=== PATIENT | male | born 1980 | race Caucasian/White ===

== ENCOUNTER 2017-09-23 13:02 | Emergency (ER) | payer OTHER ==
--- NOTE | 2017-09-23 14:52 | EDM.PDOC ---
ED HPI GENERAL MEDICAL PROBLEM - General Chief Complaint: Respiratory Problem Stated Complaint: DIFFICULTY BREATHING Time Seen by Provider: 09/23/17 13:40 Source of Information: Reports: Patient History Limitations: Reports: No Limitations - History of Present Illness INITIAL COMMENTS - FREE TEXT/NARRATIVE: 36-year-old male presents for evaluation and treatment of multiple different complaints. He is difficult to follow. He has lots of flight of ideas, paranoid thoughts and tangential thoughts. Likely schizophrenic. He denies that he is on any current medications and denies any chronic medical conditions. He denies any drug or alcohol usage. He states that he does smoke cigarettes occasionally. Patient checked in with difficulty breathing. He feels that there are parasites in his lungs. He states he has trouble getting a clear breath and describes crawling in his lungs. He does not really have chest pain from this. He is unsure if he has any fevers. He denies any chills. He states that he has been vomiting. No diarrhea. He also complains of abdominal pain. Reports he had abdominal pain for 4 days but it is now mostly subsided. He did try drinking fluids, milk of magnesia and using a fleets enema without much relief. Patient also reports that he has something in his throat and feels like his swelling. He describes some postnasal drainage. He also reports that he has the tics to the left eye. He does acknowledge that his symptoms could be from stress. He states that he is hearing noises in the form of his stomach growling grumbling and feels that his stomach is in knots. Patient reports a good appetite. He denies any suicidal or homicidal ideation. He denies any recent travel. He reports he was recently relocated to [place] from [place]. 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 Past Medical History - Past Health History Medical/Surgical History: Denies Medical/Surgical History Social & Family History - Tobacco Use Smoking Status *Q: Former Smoker Used Tobacco, but Quit: Yes Month Tobacco Last Used: about 1 year and relapsed - Caffeine Use Caffeine Use: Reports: Coffee, Soda - Recreational Drug Use Recreational Drug Use: No ED ROS GENERAL - Review of Systems Review Of Systems: See Below Constitutional: Reports: Fatigue. Denies: Chills HEENT: Reports: Throat Pain, Throat Swelling, Other (reports left eye tic) Respiratory: Reports: Shortness of Breath Cardiovascular: Denies: Chest Pain GI/Abdominal: Reports: Abdominal Pain (last 4 days now improved; knots in stomach). Denies: Diarrhea Psychiatric: Reports: Anxiety. Denies: Homicidal Ideation, Suicidal Ideation ED EXAM, GENERAL - Physical Exam Exam: See Below Exam Limited By: No Limitations General Appearance: Alert, WD/WN, No Apparent Distress Eye Exam: Bilateral Eye: Normal Inspection Ears: Normal External Exam, Normal Canal, Hearing Grossly Normal, Normal TMs Nose: Normal Inspection Throat/Mouth: Normal Inspection, Normal Lips, Normal Voice, No Airway Compromise Respiratory/Chest: No Respiratory Distress, Lungs Clear, Normal Breath Sounds Cardiovascular: Normal Peripheral Pulses, Regular Rate, Rhythm, No Murmur GI/Abdominal: Normal Bowel Sounds, Soft, Non-Tender Neurological: Alert, Normal Gait Psychiatric: Other (paranoid thoughts, tangental thoughts, fight of ideas, no suicidal or homicidal thoughts or plan) Skin Exam: Warm, Dry, Normal Color Course - Vital Signs Last Recorded V/S: Last Vital Signs Temp 37.1 C 09/23/17 13:20 Pulse 74 09/23/17 13:20 Resp 20 09/23/17 13:20 BP 131/92 H 09/23/17 13:20 Pulse Ox 98 09/23/17 13:20 - Orders/Labs/Meds Orders: Active Orders 24 hr Category Date Time Status Chest 2V [CR] Stat Exams 09/23/17 13:57 Taken KUB [Abdomen 1V Flat] [CR] Stat Exams 09/23/17 13:57 Taken RAPID PLASMA REAGIN,RPR [CHEM] Stat Lab 09/23/17 14:15 Received Labs: Laboratory Tests 09/23/17 09/23/17 09/23/17 Range/Units 14:15 14:15 14:15 WBC 6.14 (4.23-9.07) K/mm3 RBC 5.16 (4.63-6.08) M/mm3 Hgb 17 (13.7-17.5) gm/L Hct 44.5 (40.1-51.0) % MCV 86.2 (79.0-92.2) fl MCH 32.9 H (25.7-32.2) pg MCHC 38.2 H (32.2-35.5) g/dl RDW Std Deviation 38.7 (35.1-43.9) fL Plt Count 232 (163-337) K/mm3 MPV 9.6 (9.4-12.3) fl Neutrophils % (Manual) 59 (40-60) % Band Neutrophils % 0 (0-10) % Lymphocytes % (Manual) 35 (20-40) % Atypical Lymphs % 0 % Monocytes % (Manual) 1 L (2-10) % Eosinophils % (Manual) 5 (0.8-7.0) % Basophils % (Manual) 0 L (0.2-1.2) Platelet Estimate Adequate Plt Morphology Comment Normal RBC Morph Comment Normal Sodium 140 (136-145) mEq/L Potassium 4.4 (3.5-5.1) mEq/L Chloride 105 (98-107) mEq/L Carbon Dioxide 26 (21-32) mEq/L Anion Gap 13.4 (5-15) BUN 13 (7-18) mg/dL Creatinine 0.9 (0.7-1.3) mg/dL Est Cr Clr Drug Dosing 117.60 mL/min Estimated GFR (MDRD) > 60 (>60) mL/min BUN/Creatinine Ratio 14.4 (14-18) Glucose 93 (74-106) mg/dL Calcium 9.5 (8.5-10.1) mg/dL Magnesium 2.0 (1.8-2.4) mg/dl Total Bilirubin 3.8 H (0.2-1.0) mg/dL Direct Bilirubin 0.20 (0.0-0.2) mg/dl AST 26 (15-37) U/L ALT 45 (16-63) U/L Alkaline Phosphatase 69 (46-116) U/L C-Reactive Protein < 0.2 (<1.0) mg/dL Total Protein 7.5 (6.4-8.2) g/dl Albumin 4.2 (3.4-5.0) g/dl Globulin 3.3 gm/dL Albumin/Globulin Ratio 1.3 (1-2) Lipase 110 (73-393) U/L Urine Color (Yellow) Urine Appearance (Clear) Urine pH (5.0-8.0) Ur Specific [place] (1.005-1.030) Urine Protein (Negative) Urine Glucose (UA) (Negative) Urine Ketones (Negative) Urine Occult Blood (Negative) Urine Nitrite (Negative) Urine Bilirubin (Negative) Urine Urobilinogen (0.2-1.0) Ur Leukocyte Esterase (Negative) Urine RBC (0-5) /hpf Urine WBC (0-5) /hpf Ur Epithelial Cells (0-5) /hpf Urine Bacteria (FEW) /hpf Urine Mucus (FEW) /hpf Urine Opiates Screen (NEGATIVE) Ur Buprenorphine Scrn (NEGATIVE) Ur Oxycodone Screen (NEGATIVE) Urine Methadone Screen (NEGATIVE) Ur Propoxyphene Screen (NEGATIVE) Ur Barbiturates Screen (NEGATIVE) Ur Tricyclics Screen (NEGATIVE) Ur Phencyclidine Scrn (NEGATIVE) Ur Amphetamine Screen (NEGATIVE) U Methamphetamines Scrn (NEGATIVE) U Benzodiazepines Scrn (NEGATIVE) U Cocaine Metab Screen (NEGATIVE) U Marijuana (THC) Screen (NEGATIVE) Ethyl Alcohol 0.00 (0.00) gm% 09/23/17 09/23/17 Range/Units 14:45 14:45 WBC (4.23-9.07) K/mm3 RBC (4.63-6.08) M/mm3 Hgb (13.7-17.5) gm/L Hct (40.1-51.0) % MCV (79.0-92.2) fl MCH (25.7-32.2) pg MCHC (32.2-35.5) g/dl RDW Std Deviation (35.1-43.9) fL Plt Count (163-337) K/mm3 MPV (9.4-12.3) fl Neutrophils % (Manual) (40-60) % Band Neutrophils % (0-10) % Lymphocytes % (Manual) (20-40) % Atypical Lymphs % % Monocytes % (Manual) (2-10) % Eosinophils % (Manual) (0.8-7.0) % Basophils % (Manual) (0.2-1.2) Platelet Estimate Plt Morphology Comment RBC Morph Comment Sodium (136-145) mEq/L Potassium (3.5-5.1) mEq/L Chloride (98-107) mEq/L Carbon Dioxide (21-32) mEq/L Anion Gap (5-15) BUN (7-18) mg/dL Creatinine (0.7-1.3) mg/dL Est Cr Clr Drug Dosing mL/min Estimated GFR (MDRD) (>60) mL/min BUN/Creatinine Ratio (14-18) Glucose (74-106) mg/dL Calcium (8.5-10.1) mg/dL Magnesium (1.8-2.4) mg/dl Total Bilirubin (0.2-1.0) mg/dL Direct Bilirubin (0.0-0.2) mg/dl AST (15-37) U/L ALT (16-63) U/L Alkaline Phosphatase (46-116) U/L C-Reactive Protein (<1.0) mg/dL Total Protein (6.4-8.2) g/dl Albumin (3.4-5.0) g/dl Globulin gm/dL Albumin/Globulin Ratio (1-2) Lipase (73-393) U/L Urine Color Yellow (Yellow) Urine Appearance Clear (Clear) Urine pH 7.0 (5.0-8.0) Ur Specific [place] 1.020 (1.005-1.030) Urine Protein Negative (Negative) Urine Glucose (UA) Negative (Negative) Urine Ketones Negative (Negative) Urine Occult Blood Negative (Negative) Urine Nitrite Negative (Negative) Urine Bilirubin Negative (Negative) Urine Urobilinogen 0.2 (0.2-1.0) Ur Leukocyte Esterase Trace H (Negative) Urine RBC Not seen (0-5) /hpf Urine WBC 0-5 (0-5) /hpf Ur Epithelial Cells 0-5 (0-5) /hpf Urine Bacteria Not seen (FEW) /hpf Urine Mucus Not seen (FEW) /hpf Urine Opiates Screen Negative (NEGATIVE) Ur Buprenorphine Scrn Negative (NEGATIVE) Ur Oxycodone Screen Negative (NEGATIVE) Urine Methadone Screen Negative (NEGATIVE) Ur Propoxyphene Screen Negative (NEGATIVE) Ur Barbiturates Screen Negative (NEGATIVE) Ur Tricyclics Screen Negative (NEGATIVE) Ur Phencyclidine Scrn Negative (NEGATIVE) Ur Amphetamine Screen Negative (NEGATIVE) U Methamphetamines Scrn Negative (NEGATIVE) U Benzodiazepines Scrn Negative (NEGATIVE) U Cocaine Metab Screen Negative (NEGATIVE) U Marijuana (THC) Screen Negative (NEGATIVE) Ethyl Alcohol (0.00) gm% - Radiology Interpretation Free Text/Narrative:: Abdomen: Supine view of the abdomen was obtained. Comparison: No prior study. Slight increased stool within the colon is seen. Bowel gas pattern is otherwise unremarkable. No abnormal calcifications or soft tissue abnormality is seen. Bony structures are unremarkable. Impression: 1. Slight increased stool within the colon. 2. Supine abdominal x-ray is otherwise unremarkable. Chest: 2 views of the chest were obtained. Comparison: Prior chest x-ray of 01/30/11. Heart size and mediastinum are normal. Minimal scoliosis is seen within the thoracic spine which is stable. Diaphragms are flattened on the lateral view suggesting slight hyperinflation, please correlate if patient is a smoker or has asthma. Lungs otherwise are clear. Impression: 1. Diaphragms are slightly flattened. Please see above. 2. Nothing acute is seen. - Re-Assessments/Exams Free Text/Narrative Re-Assessment/Exam: 09/23/17 16:17 I had a long discussion with the patient's mother, Dangelo, she states that the patient asked to come to the ER today. She states he is always make comments about having parasites within him but over the last few weeks it seems like it has gotten worse. She confirms that he is a schizophrenic. He is not currently on medications. She states that she does have a psychiatrist that is willing to see him whenever he is ready to be seen. She reports that earlier this year she moved him here from [place]. He was homeless for approximately last 15 years in [place]. She now pays for a home for him in [place] and buys him groceries weekly. She states he drinks alcohol on occasion. He does smoke cigarettes on occasion. Reports about a year and a half ago while in [place] he did have a suicide attempt. Reports that he overdosed on his psych medications. She states that he was previously on amitriptyline and Zyprexa. She states he was involved with a program for homeless people and getting medications through that program. She reports that he was hospitalized in [place]. Since coming to [place] he has not seen anyone for psychiatric care. She states she monitors him closely and he has not recently said anything to suggest suicidal or homicidal behavior. She states he often has paranoid thoughts such as bugs and parasites inside and being from another planet. She states she is normally able to reason with him and points out flaws in his thinking process and this causes him to realize that he is likely not from another planet. I informed her of [email or web address]. I informed her of the intake process at 8 AM on Sunday to if he is willing to go. She states she has committed him before and is aware of how this process goes. I encouraged her to bring him to the ER if his symptoms change or worsen or if he has any threatening behavior. Mom does confirm that he's had a chronically elevated total bilirubin. She states they have never identified the etiology for this. I informed the patient of his lab and xray results. Feels comfortable going home. Discharge instructions as documented . Departure - Departure Time of Disposition: 16:25 Disposition: Home, Self-Care 01 Condition: Good Clinical Impression: Stress, Constipation - Discharge Information Instructions: Constipation, Adult, [id number] Referrals: PCP,None [Primary Care Provider] - Forms: ED Department Discharge Additional Instructions: Make sure you are drinking plenty of fluids. You may try [id number] medication such as MiraLAX as needed for help with constipation. Follow up with a family medicine provider as needed. Please return to the ER if your symptoms change or worsen. - My Orders Last 24 Hours: My Active Orders 09/23/17 13:57 Chest 2V [CR] Stat KUB [Abdomen 1V Flat] [CR] Stat 09/23/17 14:15 RAPID PLASMA REAGIN,RPR [CHEM] Stat - Assessment/Plan Last 24 Hours: My Active Orders 09/23/17 13:57 Chest 2V [CR] Stat KUB [Abdomen 1V Flat] [CR] Stat 09/23/17 14:15 RAPID PLASMA REAGIN,RPR [CHEM] Stat
--- NOTE | 2017-09-24 07:24 | CR ---
Chest: Two views of the chest were obtained. Comparison: Prior chest x-ray of 01/30/11. Heart size and mediastinum are normal. Minimal scoliosis is seen within the thoracic spine which is stable. Diaphragms are flattened on the lateral view suggesting slight hyperinflation, please correlate if patient is a smoker or has asthma. Lungs otherwise are clear. Impression: 1. Diaphragms are slightly flattened. Please see above. 2. Nothing acute is seen. Diagnostic code #3
--- NOTE | 2017-09-24 07:25 | CR ---
Abdomen: Supine view of the abdomen was obtained. Comparison: No prior study. Slight increased stool within the colon is seen. Bowel gas pattern is otherwise unremarkable. No abnormal calcifications or soft tissue abnormality is seen. Bony structures are unremarkable. Impression: 1. Slight increased stool within the colon. 2. Supine abdominal x-ray is otherwise unremarkable. Diagnostic code #2
== END 2017-09-23 16:30 | disposition home or self-care (01) ==
LOC: JD.ED 13:02
DX: K59.00 Constipation, unspecified (principal); F43.9 Reaction to severe stress, unspecified; Z87.891 Personal history of nicotine dependence
CPT/HCPCS: 36415; 71020; 74000; 80053; 80306; 81001; 82248; 83690; 83735; 85025; 86140; 86592; 99285; G0480; 99284

== ENCOUNTER 2021-12-29 05:13 | Inpatient (IN) | payer SELFPAY ==
[2021-12-29] MEDS ORDERED: Ondansetron 4 MG/2 ML SDV IVPUSH ONE ×2 (05:33→10:54)
[2021-12-29] MEDS ORDERED: Sodium Chloride 0.9% 1,000 ML IV STA (05:33)
[2021-12-29] MEDS ORDERED: Sodium Chloride 0.9% 10 ML Syringe FLUSH PRN (05:33)
[2021-12-29] MEDS ORDERED: HYDROmorphone 0.5 MG/0.5 ML Syringe IVPUSH ONE (05:35)
[2021-12-29] MEDS ORDERED: LORazepam 2 MG/ML SDV IVPUSH ONE (10:54)
[2021-12-29] MEDS ORDERED: FLU Vacc QS2021-22 36MOS UP/PF 60 MCG/0.5 ML Syringe IM ONE (16:30)
[2021-12-29] MEDS: cefTRIAXone 2 GM in Sodium Chloride 0.9% 100 ML IV SCH (16:44)
[2021-12-29] MEDS: Sodium Chloride 0.9% 1,000 ML IV SCH (16:44)
[2021-12-29] MEDS: metroNIDAZOLE/Normal Saline 500 MG in Premix Bag 1 BAG IV SCH (17:51)
[2021-12-29] MEDS: oxyCODONE 5 MG Tab PO PRN (20:06)
[2021-12-29] MEDS: Lactulose Soln 10 GM/15 ML 30 ML UD Cup PO SCH (20:07)
[2021-12-29] MEDS: Lithium Carbonate 300 MG Cap PO SCH (20:15)
[2021-12-29] MEDS: Haloperidol 5 MG Tab PO SCH (20:17)
[2021-12-29] MEDS: Ondansetron 4 MG Tab.DIS PO PRN (20:18)
[2021-12-30] MEDS: metroNIDAZOLE/Normal Saline 500 MG in Premix Bag 1 BAG IV SCH ×4 (00:14→23:25)
[2021-12-30] MEDS: Ondansetron 4 MG Tab.DIS PO PRN (04:06)
[2021-12-30] MEDS ORDERED: Calcium Carbonate 500 MG Tab.Chew PO PRN (05:11)
[2021-12-30] MEDS: Sodium Chloride 0.9% 1,000 ML IV SCH ×2 (05:28→18:41)
[2021-12-30] MEDS: Lithium Carbonate 300 MG Cap PO SCH ×2 (08:15→21:58)
[2021-12-30] MEDS: Lactulose Soln 10 GM/15 ML 30 ML UD Cup PO SCH ×2 (08:18→21:59)
[2021-12-30] MEDS ORDERED: LORazepam 2 MG/ML SDV IVPUSH ONE (09:00)
[2021-12-30] MEDS ORDERED: LORazepam 2 MG/ML SDV IVPUSH PRN (11:52)
[2021-12-30] MEDS: cefTRIAXone 2 GM in Sodium Chloride 0.9% 100 ML IV SCH (14:51)
[2021-12-30] MEDS: Haloperidol 5 MG Tab PO SCH (21:58)
[2021-12-30] MEDS: oxyCODONE 5 MG Tab PO PRN (23:33)
[2021-12-31] MEDS: Lactulose Soln 10 GM/15 ML 30 ML UD Cup PO SCH (08:50)
[2021-12-31] MEDS: metroNIDAZOLE/Normal Saline 500 MG in Premix Bag 1 BAG IV SCH ×3 (08:50→23:39)
[2021-12-31] MEDS: Lithium Carbonate 300 MG Cap PO SCH ×2 (08:51→20:56)
[2021-12-31] MEDS: Sodium Chloride 0.9% 1,000 ML IV SCH (10:47)
[2021-12-31] MEDS: cefTRIAXone 2 GM in Sodium Chloride 0.9% 100 ML IV SCH (15:29)
[2021-12-31] MEDS: Haloperidol 5 MG Tab PO SCH (20:56)
[2021-12-31] MEDS: Ondansetron 4 MG Tab.DIS PO PRN (21:22)
[2022-01-01] MEDS: Lithium Carbonate 300 MG Cap PO SCH ×2 (08:50→20:59)
[2022-01-01] MEDS: metroNIDAZOLE/Normal Saline 500 MG in Premix Bag 1 BAG IV SCH (17:28)
[2022-01-01] MEDS: Haloperidol 5 MG Tab PO SCH (20:59)
[2022-01-02] MEDS: Lithium Carbonate 300 MG Cap PO SCH (08:11)
[2022-01-02] MEDS ORDERED: FLU Vacc QS2021-22 36MOS UP/PF 60 MCG/0.5 ML Syringe IM ONE (14:00)
== END 2022-01-02 14:53 | disposition home or self-care (01) | DRG 442 ==
LOC: JD.ED 05:13 → JD.MS 14:09
PROVIDERS: ADMIT Family Medicine; ATTEND Internal Medicine
DX: K75.9 Inflammatory liver disease, unspecified (principal); F23 Brief psychotic disorder; K83.09 Other cholangitis; F31.9 Bipolar disorder, unspecified; Z20.822 Contact with and (suspected) exposure to COVID-19; E83.01 Wilson's disease; F29 Unspecified psychosis not due to a substance or known physiological condition; K59.00 Constipation, unspecified; K80.20 Calculus of gallbladder without cholecystitis without obstruction; Z97.3 Presence of spectacles and contact lenses; Z87.891 Personal history of nicotine dependence
CPT/HCPCS: 36415; 74181; 74181-26; 76705; 76705-26; 80053; 80074; 80143; 80306; 80307; 81001; 82140; 82390; 82525; 82977; 83690; 84443; 85025; 85027; 85610; 85730; 86038; 86308; 86644; 86645; 86695; 86696; 90686; 90792; 96374; 96375; 96376; 99285; 99285-25; A9270-GY; G0008; G0433; J0696; J1170; J2060; J2405; J3490; J7030; U0002

== ENCOUNTER 2022-01-10 23:21 | Emergency (ER) | payer SELFPAY ==
[2022-01-11] MEDS ORDERED: Sodium Chloride 0.9% 10 ML Syringe FLUSH PRN (00:23)
[2022-01-11] MEDS ORDERED: Ondansetron 4 MG/2 ML SDV IVPUSH ONE (00:33)
[2022-01-11] MEDS ORDERED: Sodium Chloride 0.9% 1,000 ML IV SCH (00:45)
[2022-01-11] MEDS ORDERED: Alum Hydrox/Mag Hydrox/Simeth 30 ML, Lidocaine 2% 15 ML PO ONE ×2 (01:08)
== END 2022-01-11 11:15 ==
LOC: JD.ED 23:21
DX: K72.90 Hepatic failure, unspecified without coma (principal); F31.4 Bipolar disorder, current episode depressed, severe, without psychotic features; R74.01 Elevation of levels of liver transaminase levels; Z20.822 Contact with and (suspected) exposure to COVID-19
CPT/HCPCS: 36415; 76705; 80053; 80143; 80306; 80307; 81001; 82140; 82977; 83690; 85018; 85025; 85610; 86140; 87635; 96374; 99285; A9270; J2405; J7030; U0002

== ENCOUNTER 2024-03-06 19:19 | Emergency (ER) | payer MEDICAID ==
[2024-03-06] MEDS: Diphtheria,Pertussis(Acell),Tetanus Vaccine 0.5 ML Syringe IM ONE (19:48)
== END 2024-03-06 19:58 ==
LOC: JD.ED 19:19
DX: S91.115A Laceration without foreign body of left lesser toe(s) without damage to nail, initial encounter (principal); Z23 Encounter for immunization; Z79.899 Other long term (current) drug therapy; W26.8XXA Contact with other sharp object(s), not elsewhere classified, initial encounter
CPT/HCPCS: 90471; 90715; 99283-25

== ENCOUNTER 2025-05-20 20:38 | Emergency (ER) | payer MEDICAID ==
[2025-05-20 21:13] LABS: BASOPHILS ABSOLUTE AUTO 0.0 K/mm3 (0.0-0.2); BASOPHILS PERCENT AUTO 0.2 % (0.0-1.0); EOSINOPHILS ABSOLUTE AUTO 0.0 K/mm3 (0.0-0.4); EOSINOPHILS PERCENT AUTO 0.0 % (0.0-6.0); IMMATURE GRAN ABSOLUTE AUTO 0.07 K/mm3 (0.00-0.05); IMMATURE GRAN PERCENT AUTO 0.5 % (0.0-0.4); LYMPHOCYTES ABSOLUTE AUTO 1.1 K/mm3 (1.0-4.8); LYMPHOCYTES PERCENT AUTO 7.8 % (24.0-44.0); MEAN PLATELET VOLUME 9.6 fl (9.4-12.4); MONOCYTES ABSOLUTE AUTO 1.0 K/mm3 (0.0-0.8); MONOCYTES PERCENT AUTO 6.8 % (0.0-8.0); NEUTROPHILS ABSOLUTE AUTO 12.2 K/mm3 (1.8-7.7); NEUTROPHILS PERCENT AUTO 84.7 % (41.0-71.0); NRBC ABSOLUTE 0.00 (0.00-0.02); NRBC PERCENT 0.0 % (0.0-0.2); PLATELET COUNT,PLT 287 K/mm3 (150-400); RED BLOOD CELL COUNT 4.63 M/mm3 (4.52-5.90); WHITE BLOOD CELL COUNT,WBC 14.41 K/mm3 (3.9-11.3)
[2025-05-20 21:36] LABS: INR 1.14
[2025-05-20 21:39] LABS: A/G RATIO 1.7 (1-2); ALANINE AMINOTRANSFERASE,ALT 24.0 U/L (16-63); ASPARTATE AMNIOTRANSFERASE,AST 28.0 U/L (15-37); BILIRUBIN TOTAL 6.4 mg/dL (0.2-1.0); BLOOD UREA NITROGEN,BUN 10.0 mg/dL (7-18); CARBON DIOXIDE,CO2 21.0 mEq/L (21-32); CHLORIDE,CL 108.0 mEq/L (98-107); EST CRCL DRUG DOSING (CG) 84.54 mL/min; ESTIMATED GFR 77.0 mL/min (>60); GLUCOSE RANDOM 111.0 mg/dL (70-99); POTASSIUM,K 3.4 mEq/L (3.5-5.1); SODIUM,NA 144.0 mEq/L (136-145)
[2025-05-20 21:40] LABS: ETHANOL BLOOD MEDICAL 0.0 gm% (0.00)
[2025-05-20 21:41] LABS: CREATININE 1.2 mg/dL (0.7-1.3); PROTEIN TOTAL,TP 7.1 g/dl (6.4-8.2)
[2025-05-21 01:31] LABS: HEPATITIS C AB NON-REACTIVE (Non-React)
[2025-05-21 01:32] LABS: HIV RAPID SCREEN RLFX COMFIRM NON-REACTIVE (Non-React)
[2025-05-22 16:47] LABS: HEP B SURFACE AG Negative (Negative)
== END 2025-05-20 23:00 ==
LOC: JD.ED 20:38
DX: S80.02XA Contusion of left knee, initial encounter (principal); S80.01XA Contusion of right knee, initial encounter; S40.022A Contusion of left upper arm, initial encounter; S40.021A Contusion of right upper arm, initial encounter; K75.9 Inflammatory liver disease, unspecified; Z88.2 Allergy status to sulfonamides; X58.XXXA Exposure to other specified factors, initial encounter
CPT/HCPCS: 36415; 70450; 70450-26; 70486; 70486-26; 71045; 71045-26; 735602650; 73560-50; 80053; 80307; 83690; 83735; 85025; 85610; 86140; 86803; 87340; 99283; 99284; G0433

== ENCOUNTER 2025-05-21 16:01 | Emergency (ER) | payer MEDICAID | END 2025-05-21 16:30 | disposition home or self-care (01) | LOC: JD.ED 16:01 | DX: S00.83XD Contusion of other part of head, subsequent encounter (principal); Z88.2 Allergy status to sulfonamides; Z79.899 Other long term (current) drug therapy; X58.XXXD Exposure to other specified factors, subsequent encounter | CPT/HCPCS: 99283 ==

== ENCOUNTER 2025-07-10 10:48 | Emergency (ER) | payer MEDICAID ==
[2025-07-10 11:14] LABS: BASOPHILS ABSOLUTE AUTO 0.0 K/mm3 (0.0-0.2); BASOPHILS PERCENT AUTO 0.7 % (0.0-1.0); EOSINOPHILS ABSOLUTE AUTO 0.2 K/mm3 (0.0-0.4); EOSINOPHILS PERCENT AUTO 2.9 % (0.0-6.0); IMMATURE GRAN ABSOLUTE AUTO 0.01 K/mm3 (0.00-0.05); IMMATURE GRAN PERCENT AUTO 0.2 % (0.0-0.4); LYMPHOCYTES ABSOLUTE AUTO 2.3 K/mm3 (1.0-4.8); LYMPHOCYTES PERCENT AUTO 38.6 % (24.0-44.0); MEAN PLATELET VOLUME 9.7 fl (9.4-12.4); MONOCYTES ABSOLUTE AUTO 0.4 K/mm3 (0.0-0.8); MONOCYTES PERCENT AUTO 6.9 % (0.0-8.0); NEUTROPHILS ABSOLUTE AUTO 3.0 K/mm3 (1.8-7.7); NEUTROPHILS PERCENT AUTO 50.7 % (41.0-71.0); NRBC ABSOLUTE 0.00 (0.00-0.02); NRBC PERCENT 0.0 % (0.0-0.2); PLATELET COUNT,PLT 285 K/mm3 (150-400); RED BLOOD CELL COUNT 5.46 M/mm3 (4.52-5.90); WHITE BLOOD CELL COUNT,WBC 5.93 K/mm3 (3.9-11.3)
[2025-07-10 11:41] LABS: BUPRENORPHINE SCREEN,URINE NEGATIVE (CUTOFF=10); METHADONE SCREEN, URINE NEGATIVE (CUT0FF=200); METHAMPHETAMINES SCREEN, URINE NEGATIVE (CUTOFF=500); OXYCODONE SCREEN,URINE NEGATIVE (CUT0FF=100); THC SCREEN,URINE 20 NG/ML NEGATIVE (CUTOFF=50)
[2025-07-10 11:42] LABS: AMPHETAMINES SCREEN, URINE NEGATIVE (CUTOFF=500)
[2025-07-10 11:44] LABS: A/G RATIO 1.7 (1-2); ALANINE AMINOTRANSFERASE,ALT 22.0 U/L (16-63); ASPARTATE AMNIOTRANSFERASE,AST 13.0 U/L (15-37); BILIRUBIN TOTAL 7.8 mg/dL (0.2-1.0); BLOOD UREA NITROGEN,BUN 9.0 mg/dL (7-18); CARBON DIOXIDE,CO2 28.0 mEq/L (21-32); CHLORIDE,CL 103.0 mEq/L (98-107); CREATININE 1.1 mg/dL (0.7-1.3); EST CRCL DRUG DOSING (CG) 92.22 mL/min; ESTIMATED GFR 85.0 mL/min (>60); GLUCOSE RANDOM 109.0 mg/dL (70-99); POTASSIUM,K 4.7 mEq/L (3.5-5.1); PROTEIN TOTAL,TP 7.5 g/dl (6.4-8.2); SODIUM,NA 141.0 mEq/L (136-145); TSH 1.972 uIU/mL (0.358-3.74)
[2025-07-10 11:51] LABS: ETHANOL BLOOD MEDICAL 0.0 gm% (0.00)
== END 2025-07-10 12:45 ==
LOC: JD.ED 10:48
DX: F23 Brief psychotic disorder (principal); K76.9 Liver disease, unspecified; R17 Unspecified jaundice; Z88.2 Allergy status to sulfonamides; Z79.899 Other long term (current) drug therapy
CPT/HCPCS: 36415; 80053; 80143; 80179; 80306; 80307; 84443; 85025; 87426-QW; 99284; 99285